=== PATIENT | male | born 1955 | race Caucasian/White ===

== ENCOUNTER 2017-08-15 13:51 | Emergency (ER) | payer OTHER ==
--- NOTE | 2017-08-15 14:26 | EKG ---
FACILITY: [facility] PATIENT NAME: JAHAIRA MENENDEZ : [id number] MR: [id number] V: [id number] EXAM DATE: ORDERING PHYSICIAN: MELVI GARCIA TECHNOLOGIST: SHANTANU Palacios Reason : PROBLEM Blood Pressure : / mmHG Vent. Rate : 067 BPM Atrial Rate : 067 BPM P-R Int : 152 ms QRS Dur : 088 ms QT Int : 416 ms P-R-T Axes : 018 -09 041 degrees QTc Int : 439 ms Sinus rhythm with premature atrial complexes Otherwise normal ECG No previous ECGs available Confirmed by RIVAS CARTER ([id number]) on 08/15/2017 3:09:55 PM Referred By: RADHA Confirmed By:RIVAS CARTER
[2017-08-15] MEDS ORDERED: NS(*) 0.9% 1000 ML BAG 1,000 ML IV ONE (14:39)
--- NOTE | 2017-08-15 14:39 | ER Report ---
History and Physical Time Seen By MD: 14:00 Hx. of Stated Complaint: PT REPORTS R FLANK PAIN AND LOWER BACK PAIN, NAUSEA HPI/ROS 62-year-old male who lives in [place] but was coming to [place] for business for the day presented to the emergency department with acute right sided flank and right-sided abdominal pain. Also with pressure upon urination. He also states that he feels nauseous. Past medical history significant only for hypertension. No fever or chills. No previous abdominal surgeries. No diarrhea. No urinary symptoms. Remainder of the 14 system rev: Yes Allergies: Coded Allergies: Sulfa (Sulfonamide Antibiotics) (Verified Allergy, Mild, 08/15/17) Home Meds Active Scripts Ondansetron (ZOFRAN ODT) 4 Mg Tab.rapdis, 4 MG PO Q6H Y for NAUSEA/VOMITING, # 20 TAB.JENNIFER 0 Refills Prov:MELVI GARCIA MD 08/15/17 Oxycodone Hcl/Acetaminophen (OXYCODONE-ACETAMINOPHEN 5-325) 1 Each Tablet, 1 EACH PO Q4-6H for PAIN for 5 Days, #10 TAB 0 Refills Prov:MELVI GARCIA MD 08/15/17 Ibuprofen (IBUPROFEN) 600 Mg Tablet, 1 TAB PO Q6H for 10 Days, #30 TAB Prov:MELVI GARCIA MD 08/15/17 Reviewed Nurses Notes: Yes Hx Smoking: No Smoking Status: Never Smoker Exposure to Second Hand Smoke?: No Hx Substance Use Disorder: No Hx Alcohol Use: No Family History of: HTN Constitutional Vital Sign - Last 24 Hours 08/15/17 08/15/17 08/15/17 08/15/17 13:56 13:58 13:58 14:06 Temp 98.0 Pulse 71 71 Resp 16 B/P (MAP) 188/102 (130) 180/102 180/102 (128) Pulse Ox 95 94 O2 Delivery Room Air 08/15/17 08/15/17 08/15/17 08/15/17 14:21 14:30 14:35 14:50 Pulse 74 73 76 B/P (MAP) 169/96 (120) Pulse Ox 97 94 89 08/15/17 08/15/17 08/15/17 08/15/17 15:00 15:30 16:00 16:55 Pulse 74 B/P (MAP) 157/97 (117) 148/83 (104) 142/80 (100) 138/75 (96) Pulse Ox 93 Physical Exam General Appearance: The patient is alert, has no immediate need for airway protection and no signs of toxicity. Eyes: Pupils equal and round no pallor or injection. ENT, Mouth: Mucous membranes are moist. Respiratory: There are no retractions, lungs are clear to auscultation. Cardiovascular: Regular rate and rhythm. Gastrointestinal: Abdomen is soft. There is diffuse, non focal TTP Skin: Warm and dry, no rashes. Musculoskeletal: Right flank TTP DIFFERENTIAL DIAGNOSIS: After history and physical exam differential diagnosis was considered for abdominal pain including but not limited to appendicitis, cholecystitis, gastritis and urinary tract infection. Medical Decision Making Data Points Result Diagram: 08/15/17 1405 08/15/17 1405 Laboratory Hematology Test 08/15/17 13:54 08/15/17 14:05 Urine Color Yellow Urine Clarity Slightly-cloudy Urine pH 5.0 pH (4.8-9.5) Urine Specific Jerome 1.018 Urine Protein Negative mg/dL (NEGATIVE) Urine Glucose (UA) Negative mg/dL (NEGATIVE) Urine Ketones 20 mg/dL (NEGATIVE) Urine Blood Large (NEGATIVE) Urine Nitrite Negative (NEGATIVE) Urine Bilirubin Negative (NEGATIVE) Urine Urobilinogen Negative mg/dL (0.2-1.9) Urine Leukocyte Esterase Negative (NEGATIVE) Urine RBC 638 /HPF (0-2/HPF) Urine WBC 5 /HPF (0-5/HPF) Urine Squamous Epithelial Cells Few /LPF (</=FEW) Urine Bacteria Negative /HPF (NONE-FEW) Urine Mucus Few /HPF (NONE-FEW) Red Blood Count 5.13 M/uL (4.00-5.60) Mean Corpuscular Volume 91.2 fL (80.0-96.0) Mean Corpuscular Hemoglobin 31.4 pg (26.0-33.0) Mean Corpuscular Hemoglobin Concent 34.4 g/dL (32.0-36.0) Red Cell Distribution Width 13.6 % (11.5-14.5) Mean Platelet Volume 10.0 fL (7.2-11.1) Neutrophils (%) (Auto) 85.5 % (39.4-72.5) Lymphocytes (%) (Auto) 7.6 % (17.6-49.6) Monocytes (%) (Auto) 5.6 % (4.1-12.4) Eosinophils (%) (Auto) 0.2 % (0.4-6.7) Basophils (%) (Auto) 1.1 % (0.3-1.4) Nucleated RBC Relative Count (auto) 0.0 /100WBC Neutrophils # (Auto) 11.0 K/uL (2.0-7.4) Lymphocytes # (Auto) 1.0 K/uL (1.3-3.6) Monocytes # (Auto) 0.7 K/uL (0.3-1.0) Eosinophils # (Auto) 0.0 K/uL (0.0-0.5) Basophils # (Auto) 0.1 K/uL (0.0-0.1) Nucleated RBC Absolute Count (auto) 0.00 K/uL Sodium Level 140 mmol/L (137-145) Potassium Level 3.5 mmol/L (3.5-5.0) Chloride Level 107 mmol/L (98-107) Carbon Dioxide Level 22 mmol/L (22-30) Blood Urea Nitrogen 17 mg/dl (9-21) Creatinine 1.20 mg/dl (0.66-1.25) Glomerular Filtration Rate Calc > 60.0 Random Glucose 125 mg/dl (75-110) Calcium Level 9.5 mg/dl (8.4-10.2) Total Bilirubin 0.5 mg/dl (0.2-1.3) Aspartate Amino Transf (AST/SGOT) 27 U/L (0-35) Alanine Aminotransferase (ALT/SGPT) 33 U/L (0-56) Alkaline Phosphatase 74 U/L (0-126) Total Protein 7.5 gm/dl (6.3-8.2) Albumin 4.2 g/dl (3.5-5.0) Chemistry Test 08/15/17 13:54 08/15/17 14:05 Urine Color Yellow Urine Clarity Slightly-cloudy Urine pH 5.0 pH (4.8-9.5) Urine Specific Jerome 1.018 Urine Protein Negative mg/dL (NEGATIVE) Urine Glucose (UA) Negative mg/dL (NEGATIVE) Urine Ketones 20 mg/dL (NEGATIVE) Urine Blood Large (NEGATIVE) Urine Nitrite Negative (NEGATIVE) Urine Bilirubin Negative (NEGATIVE) Urine Urobilinogen Negative mg/dL (0.2-1.9) Urine Leukocyte Esterase Negative (NEGATIVE) Urine RBC 638 /HPF (0-2/HPF) Urine WBC 5 /HPF (0-5/HPF) Urine Squamous Epithelial Cells Few /LPF (</=FEW) Urine Bacteria Negative /HPF (NONE-FEW) Urine Mucus Few /HPF (NONE-FEW) White Blood Count 12.8 k/uL (4.5-11.0) Red Blood Count 5.13 M/uL (4.00-5.60) Hemoglobin 16.1 g/dL (14.0-18.0) Hematocrit 46.7 % (42.0-52.0) Mean Corpuscular Volume 91.2 fL (80.0-96.0) Mean Corpuscular Hemoglobin 31.4 pg (26.0-33.0) Mean Corpuscular Hemoglobin Concent 34.4 g/dL (32.0-36.0) Red Cell Distribution Width 13.6 % (11.5-14.5) Platelet Count 211 K/uL (150-450) Mean Platelet Volume 10.0 fL (7.2-11.1) Neutrophils (%) (Auto) 85.5 % (39.4-72.5) Lymphocytes (%) (Auto) 7.6 % (17.6-49.6) Monocytes (%) (Auto) 5.6 % (4.1-12.4) Eosinophils (%) (Auto) 0.2 % (0.4-6.7) Basophils (%) (Auto) 1.1 % (0.3-1.4) Nucleated RBC Relative Count (auto) 0.0 /100WBC Neutrophils # (Auto) 11.0 K/uL (2.0-7.4) Lymphocytes # (Auto) 1.0 K/uL (1.3-3.6) Monocytes # (Auto) 0.7 K/uL (0.3-1.0) Eosinophils # (Auto) 0.0 K/uL (0.0-0.5) Basophils # (Auto) 0.1 K/uL (0.0-0.1) Nucleated RBC Absolute Count (auto) 0.00 K/uL Glomerular Filtration Rate Calc > 60.0 Calcium Level 9.5 mg/dl (8.4-10.2) Total Bilirubin 0.5 mg/dl (0.2-1.3) Aspartate Amino Transf (AST/SGOT) 27 U/L (0-35) Alanine Aminotransferase (ALT/SGPT) 33 U/L (0-56) Alkaline Phosphatase 74 U/L (0-126) Total Protein 7.5 gm/dl (6.3-8.2) Albumin 4.2 g/dl (3.5-5.0) Urinalysis Test 08/15/17 13:54 Urine Color Yellow Urine Clarity Slightly-cloudy Urine pH 5.0 pH (4.8-9.5) Urine Specific Jerome 1.018 Urine Protein Negative mg/dL (NEGATIVE) Urine Glucose (UA) Negative mg/dL (NEGATIVE) Urine Ketones 20 mg/dL (NEGATIVE) Urine Blood Large (NEGATIVE) Urine Nitrite Negative (NEGATIVE) Urine Bilirubin Negative (NEGATIVE) Urine Urobilinogen Negative mg/dL (0.2-1.9) Urine Leukocyte Esterase Negative (NEGATIVE) Urine RBC 638 /HPF (0-2/HPF) Urine WBC 5 /HPF (0-5/HPF) Urine Squamous Epithelial Cells Few /LPF (</=FEW) Urine Bacteria Negative /HPF (NONE-FEW) Urine Mucus Few /HPF (NONE-FEW) EKG/Imaging Imaging Results: CT scan of the abdomen/pelvis was obtained. The results of the study are 6mm calculi in the mid right ureter. The study was read by the radiologist. I viewed the images myself on the PACS system. ED Course/Re-evaluation ED Course This is an otherwise healthy 62-year-old male who is in [place] for the day for business but was in [place]. He presented with right-sided flank pain and diffuse abdominal pain that started suddenly while driving to [place] this morning. His pain improved with IV Toradol. A CT scan of the abdomen and pelvis shows a 6 mm calculi in the mid right ureter. There is significant hydronephrosis on the right. His urine does not appear to be infected. He is pain-free after IV Toradol. He is able to take by mouth. I counseled him on the size of the stone and whether or not it should pass on its own. I told him that likely this stone will pass on its own, but he should follow-up with a urologist back in [place]. I gave him a prescription for Zofran, ibuprofen, and oxycodone for his symptoms. Given the stone is in the mid ureter and not at the UVJ, Flomax is not indicated. Decision to Disposition Date: August 15, 2017 Decision to Disposition Time: 16:45 Depart Departure Latest Vital Signs Vital Signs Date Time Temp Pulse Resp B/P (MAP) Pulse Ox O2 Delivery O2 Flow Rate FiO2 08/15/17 16:55 74 138/75 (96) 93 08/15/17 13:58 98.0 16 Room Air Impression: Primary Impression: Kidney stone on right side Condition: Improved Disposition: HOME OR SELF-CARE New Scripts Ondansetron (ZOFRAN ODT) 4 Mg Tab.rapdis 4 MG PO Q6H Y for NAUSEA/VOMITING, #20 TAB.JENNIFER 0 Refills Prov: MELVI GARCIA MD 08/15/17 Oxycodone Hcl/Acetaminophen (OXYCODONE-ACETAMINOPHEN 5-325) 1 Each Tablet 1 EACH PO Q4-6H for PAIN for 5 Days, #10 TAB 0 Refills Prov: MELVI GARCIA MD 08/15/17 Ibuprofen (IBUPROFEN) 600 Mg Tablet 1 TAB PO Q6H for 10 Days, #30 TAB Prov: MELVI GARCIA MD 08/15/17 Patient Instructions: Kidney Stones (ED) MELVI GARCIA MD August 15, 2017 14:39
[2017-08-15] MEDS ORDERED: ONDANSETRON 4 MG/2 ML VIAL IVP ONE (14:40)
[2017-08-15] MEDS ORDERED: KETOROLAC 30 MG/ML VIAL IVP ONE (14:40)
[2017-08-15 14:47] LABS: PLATELET COUNT, AUTOMATED 211 K/uL (150-450)
--- NOTE | 2017-08-15 15:29 | RADIOLOGY IMAGING REPORT ---
FACILITY: [facility] [place] PATIENT NAME: Ga Delarosa : 1955 MR: [id number] V: [id number] EXAM DATE: ORDERING PHYSICIAN: MELVI GARCIA TECHNOLOGIST: Location: [facility] [place] Patient: Ga Delarosa : 1955 Visit/Account:[id number] Date of Sevice: 08/15/2017 EXAMINATION: CT abdomen and pelvis without IV contrast HISTORY: Flank and chest pain. TECHNIQUE: Axial CT images of the abdomen and pelvis were obtained without IV contrast, with mead l and sagittal 2D reconstructed images. One of the following dose optimization techniques was utilized in the performance of this exam: Autom ated exposure control; adjustment of the mA and/or kV according to the patient's size; or use of an i terative reconstruction technique. Specific details can be referenced in the facility's radiology C T exam operational policy. COMPARISON: None. FINDINGS: Evaluation of the solid and viscus parenchymal organs is limited without the benefit of IV contrast. Kidney/ureters/bladder: Mild hydronephrosis of the right kidney. There is an obstructing 6 x 5 mm hiwot culus in the upper right ureter located 2 cm below the UPJ. Perinephric stranding surrounds the right kidney. No additional urinary calculi on either side. The left kidney is negative for hydronephrosis. The uri nary bladder is mildly distended and grossly unremarkable. Liver: Multiple small cysts throughout the liver. Gallbladder and bile ducts: Negative. Spleen: Negative. Pancreas: Negative. Adrenal glands: Negative. Bowel and peritoneum: The small bowel and colon are normal in caliber, without evidence of obstructi on or any focal inflammatory process. Scattered colonic diverticulosis, without evidence of diverticu litis. Normal appendix in the right lower quadrant. No free fluid or free intraperitoneal air. Lymph node assessment: Negative. Vessels: Mild vascular calcifications. Normal caliber abdominal aorta. Musculoskeletal: Scattered degenerative changes throughout the spine. No acute osseous findings. Th ere is a lobulated low-density mass or fluid collection in the superficial soft tissues overlying the lateral left gluteal musculature, measuring 9.0 x 4.6 x 10.4 cm (AP x Trans x CC). Body wall: Small fat-containing umbilical hernia. Lung bases: Negative. IMPRESSION: 1. Obstructing 6 mm calculus in the upper right ureter, with mild hydronephrosis of the right kidney. 2. No additional urinary calculi. 3. No other acute findings in the abdomen or pelvis by noncontrast CT imaging. 4. Colonic diverticulosis. 5. Lobular low-density mass or fluid collection in the soft tissues overlying the lateral left glutea l musculature. This is favored to represent a chronic hematoma or seroma. Correlate with any prior tr auma or surgery to this region. Report Dictated By: Miah Bush MD at 08/15/2017 3:16 PM Report E-Signed By: Miah Bush MD at 08/15/2017 3:26 PM [id number]
[2017-08-15] MEDS ORDERED: IBUP600T22 PO (16:47)
[2017-08-15] MEDS ORDERED: OXYC-373 PO (16:47)
[2017-08-15] MEDS ORDERED: ONDA4TAB PO (16:48)
[2017-08-15 16:55] VITALS: BP 138/75
== END 2017-08-15 16:59 | disposition home or self-care (01) ==
LOC: ER 13:52
DX: N20.0 Calculus of kidney (principal)
CPT/HCPCS: 74176; 81001; 85025; 93005; 96361; 96374; 96375; 99284; J1885; J2405; J7030; 82040; 82247; 82310; 82374; 82435; 82565; 82947; 84075; 84132; 84155; 84295; 84450; 84460; 84520